=== PATIENT | male | born 1945 | race Caucasian/White ===

== ENCOUNTER 2020-01-15 11:50 | Observation (INO) ==
[2020-01-15] MEDS ORDERED: PEPCID 20 MG IV PREMIX* 20 MG/50 ML BAG IV SCH (13:51)
[2020-01-15 14:21] LABS: BASOPHILS # (AUTO) 0.1 X10^3/uL (0.0-0.1); BASOPHILS % (AUTO) 1.1 % (0.2-1.0); EOSINOPHILS # (AUTO) 0.3 x10^3/uL (0.0-0.2); EOSINOPHILS % (AUTO) 5.4 % (0.9-2.9); HEMATOCRIT 42.9 % (42.0-54.0); HEMOGLOBIN 14.8 g/dL (13.5-18.0); LYMPHOCYTES # (AUTO) 1.5 X10^3/uL (1.3-2.9); LYMPHOCYTES % (AUTO) 29.7 % (21.0-51.0); MEAN CORPUSCULAR HEMOGLOBIN 30.5 pg (27.0-34.0); MEAN CORPUSCULAR HGB CONC 34.4 g/dL (33.0-35.0); MEAN CORPUSCULAR VOLUME 88.5 fL (80.0-100.0); MEAN PLATELET VOLUME 8.7 fL (7.4-11.0); MONOCYTES # (AUTO) 0.4 x10^3/uL (0.3-0.8); MONOCYTES % (AUTO) 7.6 % (0.0-13.0); NEUTROPHILS # (AUTO) 2.9 x10^3/uL (2.2-4.8); NEUTROPHILS % (AUTO) 56.2 % (42.0-75.0); PLATELET COUNT 193 X10^3/uL (150.0-450.0); RED BLOOD COUNT 4.84 X10^6/uL (4.7-6.0); RED CELL DISTRIBUTION WIDTH 13.6 % (11.6-16.5); WHITE BLOOD COUNT 5.2 X10^3/uL (3.6-10.0)
[2020-01-15 14:28] LABS: BILIRUBIN,URINE NEGATIVE (NEGATIVE); BLOOD/HEMOGLOBIN,URINE NEGATIVE (NEGATIVE); GLUCOSE, URINE NEGATIVE (NEGATIVE); KETONES,URINE NEGATIVE (NEGATIVE); LEUKOCYTE ESTERASE ,URINE 2+ (NEGATIVE); NITRITES,URINE NEGATIVE (NEGATIVE); PROTEIN,URINE NEGATIVE (NEGATIVE); UROBILINOGEN,URINE NORMAL (NORMAL)
[2020-01-15 14:30] LABS: APPEARANCE,URINE CLEAR (CLEAR); COLOR,URINE YELLOW (YELLOW)
[2020-01-15 14:33] LABS: ALANINE AMINOTRANSFERASE 34 Units/L (12-78); ALKALINE PHOSPHATASE 51 Units/L (46-116); ASPARTATE AMINO TRANSFERASE 26 Units/L (15-37); BLOOD UREA NITROGEN 24 mg/dL (7-18); CARBON DIOXIDE 31.6 mmol/L (21-32); CHLORIDE 100 mmol/L (98-107); CREATININE 1.35 mg/dL (0.70-1.30); SODIUM 136 mmol/L (136-145); TOTAL PROTEIN 7.2 g/dL (6.4-8.2); eGFR NON BLACK RACES 55 (>60)
[2020-01-15] MEDS ORDERED: NS 250 ML IV 250 ML IV ONE (14:37)
[2020-01-15 14:39] LABS: BACTERIA,URINE TRACE /HPF (NEGATIVE); RBC,URINE NONE SEEN /HPF (0-3); SQUAMOUS EPITHELIAL CELL,UR RARE /HPF (NEGATIVE)
[2020-01-15] MEDS ORDERED: ZOFRAN INJ 4 MG VIAL IVP PRN (14:41)
[2020-01-15 14:48] VITALS: BMI 28.1
[2020-01-15] MEDS: PROTONIX INJ 40 MG VIAL IVP SCH ×2 (14:50→21:35)
[2020-01-15] MEDS: DEMEROL INJ IVP PRN ×2 (14:58→19:44)
--- NOTE | 2020-01-15 17:31 | DR.CONSULT ---
Consult - Consultation for Day of: Date: 01/15/20 - Chief Complaint Chief Complaint: Patient referred for GI Bleed. Patient with complaints of occasional dysphagia, dyspepsia and vomiting. - History of Present Illness History of Present Illness: Patient is a 74 yo male who was referred for GI Bleed. Patient with complaints of occasional dysphagia, dyspepsia and vomiting x 3 episodes yesterday which was black with some red blood as well. Patient denies nausea, abdominal pain, constipation, diarrhea, melena and hematochezia. Patient thinks he had an EGD several years ago. Last colon was [address] Sen showing x4 polyps, diverticulosis and thickening of the colon which was sent for pathology, patient has not follow up for pathology results yet. He takes protonix at home for GERD. Hgb 14.8, Hct 42.9, Plt 193, BUN 24, Creatinine 1.35 - Past Medical History Past Medical History: Hypertension, Sleep Apnea Additional Medical History: chronic back pain - Past Surgical History Additional Surgical History: history of back surgery, ablation to back and epidural - Social History Does patient currently use any type of tobacco product: No Have you used tobacco products in the last 12 months: No Type of Tobacco Use: None Does any household member use tobacco: No Alcohol Use: None Drug Use: None - Medications Home Medications: No Known Drug Allergies Allergy (Verified 01/15/20 16:19) CONTINUE taking the following medications albuterol sulfate [ProAir RespiClick] 2 inh INHALATION Q6H PRN 01/15/20 [History] aspirin [Aspir-81] 81 mg PO DAILY 01/15/20 [History] escitalopram oxalate [Lexapro] 10 mg PO DAILY 01/15/20 [History] fenofibrate [Fenoglide] 4 mg PO DAILY 01/15/20 [History] iron 65 mg PO DAILY 01/15/20 [History] lisinopril [Zestril] 40 mg PO DAILY 01/15/20 [History] oxybutynin chloride 5 mg PO BID 01/15/20 [History] pantoprazole [Protonix] 40 mg PO DAILY 01/15/20 [History] - Review of Systems Gastrointestinal: No Symptoms Reported, See HPI, Vomiting, Diarrhea, Other (dyspepsia, hematemesis). denies: Nausea, Abdominal Pain, Constipation, Melena, Hematochezia - Physical Exam Vital Signs: Temperature 98.4 F Pulse Rate [Left Brachial] 53 Respiratory Rate 20 Blood Pressure [Left Arm] 132/63 O2 Sat by Pulse Oximetry 97 Oriented: Normal Eyes: Normal Ear: Normal Nose: Normal Throat: Normal Respiratory: Clear Throughout Cardiovascular: Normal Auscultation: Bowel Sounds: Normal Palpation: Normal, Other (no distention). negative: Spleen Enlarged, Liver Enlarged, Mass Pulsatile Tenderness: Normal (no tenderness) Skin: Normal Musculoskeletal: Normal Psychiatric: Normal Mood Description: Calm Affect: Normal Speech Pattern: Clear, Appropriate - Plan Plan: Assessment. 1. Hematemesis, GI Bleed. Plan. 1. Protonix IV, Monitor Hg b, Transfuse as needed, EGD in am, Hemoccult. Plan reviewed with Dr. Rand - Allergies Allergies/Adverse Reactions: Allergies Allergy/AdvReac Type Severity Reaction Status Date / Time No Known Drug Allergies Allergy Verified 01/15/20 16:19
[2020-01-15] MEDS ORDERED: PROVENTIL NEB TX 0.083% 2.5MG/ 3ML NEB PRN (17:59)
[2020-01-16 05:36] LABS: BASOPHILS # (AUTO) 0.1 X10^3/uL (0.0-0.1); BASOPHILS % (AUTO) 1.4 % (0.2-1.0); EOSINOPHILS # (AUTO) 0.3 x10^3/uL (0.0-0.2); EOSINOPHILS % (AUTO) 7.5 % (0.9-2.9); HEMATOCRIT 41.7 % (42.0-54.0); HEMOGLOBIN 14.2 g/dL (13.5-18.0); LYMPHOCYTES # (AUTO) 1.4 X10^3/uL (1.3-2.9); LYMPHOCYTES % (AUTO) 31.8 % (21.0-51.0); MEAN CORPUSCULAR HEMOGLOBIN 30.7 pg (27.0-34.0); MEAN CORPUSCULAR HGB CONC 34.1 g/dL (33.0-35.0); MEAN CORPUSCULAR VOLUME 90.1 fL (80.0-100.0); MEAN PLATELET VOLUME 9.7 fL (7.4-11.0); MONOCYTES # (AUTO) 0.3 x10^3/uL (0.3-0.8); MONOCYTES % (AUTO) 7.2 % (0.0-13.0); NEUTROPHILS # (AUTO) 2.2 x10^3/uL (2.2-4.8); NEUTROPHILS % (AUTO) 52.1 % (42.0-75.0); PLATELET COUNT 164 X10^3/uL (150.0-450.0); RED BLOOD COUNT 4.63 X10^6/uL (4.7-6.0); RED CELL DISTRIBUTION WIDTH 13.6 % (11.6-16.5); WHITE BLOOD COUNT 4.2 X10^3/uL (3.6-10.0)
[2020-01-16 05:46] LABS: ALANINE AMINOTRANSFERASE 28 Units/L (12-78); ALBUMIN 3.4 g/dL (3.4-5.0); ALKALINE PHOSPHATASE 44 Units/L (46-116); ASPARTATE AMINO TRANSFERASE 22 Units/L (15-37); BLOOD UREA NITROGEN 17 mg/dL (7-18); CALCIUM 8.5 mg/dL (8.5-10.1); CHLORIDE 103 mmol/L (98-107); CREATININE 1.25 mg/dL (0.70-1.30); SODIUM 138 mmol/L (136-145); TOTAL PROTEIN 6.3 g/dL (6.4-8.2); eGFR NON BLACK RACES 60 (>60)
[2020-01-16] MEDS: DEMEROL INJ IVP PRN ×3 (06:10→22:21)
[2020-01-16] MEDS ORDERED: PEPCID 20 MG IV PREMIX* 20 MG/50 ML BAG IV SCH (09:00)
[2020-01-16] MEDS ORDERED: FENOFIBRATE PO SCH (10:30)
[2020-01-16] MEDS ORDERED: D5 LR 1000 ML 1,000 ML IV ONE (12:40)
[2020-01-16] MEDS ORDERED: DIPRIVAN VIAL 20 ML ONE (13:28)
[2020-01-16] MEDS ORDERED: LEXAPRO ONE (14:43)
[2020-01-16] MEDS: PROTONIX INJ 40 MG VIAL IVP SCH ×2 (14:46→20:54)
[2020-01-16] MEDS: LEXAPRO PO SCH (14:46)
[2020-01-16] MEDS: ZESTRIL TAB 40 MG PO SCH (14:46)
[2020-01-16] MEDS: TRICOR TAB 48 MG PO SCH (17:25)
[2020-01-16] MEDS: DITROPAN TAB 5 MG PO SCH ×2 (17:25→20:54)
--- NOTE | 2020-01-16 22:08 | DR.UPDATE ---
H&P Update History and Physical Update: History and Physical reviewed and patient examined. Changes noted: Yes with the following: IS A 74 YEAR OLD PATIENT OF OURS WHO PRESENTED TO THE HOSPITAL A DIRECT ADMISSION DUE TO AN ACUTE GI BLEED. HE REPORTED COUGHING UP DARK RED BLOOD X 1 DAY. HE REPORTS FIVE EPISODES OF VOMITING PRIOR TO ADMISSION. HE ALSO REPORTS DARK, TARRY STOOLS AND ABDOMINAL PAIN. PAIN IS RATED 5/10 AND IS DESCRIBED CRAMPING AND INTERMITTENT. HE IS CURRENTLY ON AN IRON SUPPLEMENT AND ASPIRIN. HE ALSO ADMITS TO USE OF NSAIDS DUE TO CHRONIC BACK PAIN. ON ARRIVAL TO THE ER, VITALS WERE 98.4-53-20-97%-132/63. LABS WERE OBTAINED. ABNORMAL LAB VALUES INCLUDE THE FOLLOWING: BUN 24, CREATININE 1.35. STOOL IS POSITIVE FOR OCCULT BLOOD. WE STARTED PATIENT ON PROTONIX 40MG IV BID, ZOFRAN 4MG IV Q4H PRN, DEMEROL 25MG IV Q4H PRN, AND HOME MEDICATIONS WERE RESUMED. WE WILL OBTAIN AN ABDOMEN/PELVIS CT WITH CONTRAST AND CONSULT WITH GASTROENTEROLOGY. OTHERWISE, WE PLAN TO FOLLOW UP WITH AM LABS AND CONTINUE TO MONITOR. Prescription drug monitoring program results: PDMP was not reviewed H&P Reviewed: Yes Patient was examined?: Yes
[2020-01-17] MEDS: DEMEROL INJ IVP PRN ×2 (04:09→08:12)
[2020-01-17 06:29] LABS: BASOPHILS # (AUTO) 0.1 X10^3/uL (0.0-0.1); BASOPHILS % (AUTO) 1.1 % (0.2-1.0); EOSINOPHILS # (AUTO) 0.3 x10^3/uL (0.0-0.2); EOSINOPHILS % (AUTO) 5.7 % (0.9-2.9); HEMATOCRIT 42.6 % (42.0-54.0); HEMOGLOBIN 14.5 g/dL (13.5-18.0); LYMPHOCYTES # (AUTO) 1.3 X10^3/uL (1.3-2.9); LYMPHOCYTES % (AUTO) 26.4 % (21.0-51.0); MEAN CORPUSCULAR HEMOGLOBIN 30.2 pg (27.0-34.0); MEAN CORPUSCULAR HGB CONC 33.9 g/dL (33.0-35.0); MEAN CORPUSCULAR VOLUME 88.9 fL (80.0-100.0); MEAN PLATELET VOLUME 9.1 fL (7.4-11.0); MONOCYTES # (AUTO) 0.4 x10^3/uL (0.3-0.8); MONOCYTES % (AUTO) 7.3 % (0.0-13.0); NEUTROPHILS # (AUTO) 2.9 x10^3/uL (2.2-4.8); NEUTROPHILS % (AUTO) 59.5 % (42.0-75.0); PLATELET COUNT 162 X10^3/uL (150.0-450.0); RED CELL DISTRIBUTION WIDTH 13.4 % (11.6-16.5)
[2020-01-17 06:44] LABS: ALANINE AMINOTRANSFERASE 27 Units/L (12-78); ALBUMIN 3.5 g/dL (3.4-5.0); ALKALINE PHOSPHATASE 47 Units/L (46-116); ASPARTATE AMINO TRANSFERASE 24 Units/L (15-37); BLOOD UREA NITROGEN 16 mg/dL (7-18); CALCIUM 8.6 mg/dL (8.5-10.1); CARBON DIOXIDE 28.2 mmol/L (21-32); CHLORIDE 102 mmol/L (98-107); CREATININE 1.25 mg/dL (0.70-1.30); SODIUM 137 mmol/L (136-145); TOTAL PROTEIN 6.5 g/dL (6.4-8.2); eGFR NON BLACK RACES 60 (>60)
[2020-01-17] MEDS ORDERED: LEXAPRO ONE (08:32)
[2020-01-17] MEDS: ZESTRIL TAB 40 MG PO SCH (09:14)
[2020-01-17] MEDS: LEXAPRO PO SCH (09:14)
[2020-01-17] MEDS: TRICOR TAB 48 MG PO SCH (09:14)
[2020-01-17] MEDS: PROTONIX INJ 40 MG VIAL IVP SCH (09:15)
--- NOTE | 2020-01-17 09:16 | CT ---
HISTORYGI BLEEDSTUDYCT abdomen/pelvis with contrastCOMPARISONNoneTECHNIQUEMultiple axial images of the abdomen and pelvis were obtained from the lung bases to the pubic symphysis after the administration of IV contrast. Coronal sagittal reformats obtained. Dose reduction techniques including Automated Exposure Control (AEC) and adjustment of mA and kV were utilized.FINDINGSLung bases: Ectatic ascending aorta, measures 4.6 cm in diameter. Heart size is within normal limits. No pericardial effusion. Bibasilar dependent atelectasis. Linear atelectasis/scarring at the bilateral lung bases.Liver: Subcentimeter left hepatic lobe low-density lesion, too small to be characterized.Biliary: The gallbladder is present. No biliary dilatation.Spleen: UnremarkablePancreas: UnremarkableAdrenals: Unremarkable.Kidneys: Multiple bilateral renal cortical scarring. Subcentimeter low-density lesions of the bilateral kidneys are too small to be characterized. Nonspecific mild perinephric stranding. No hydronephrosis.Bladder: Decompressed with nonspecific wall thickening.Reproductive: Prostate is mildly enlarged with a 9 mm low-density focusColon: Descending and sigmoid colonic diverticula without CT evidence of acute diverticulitis. The appendix is normal.Stomach and small bowel: Small hiatal hernia. Stomach is mildly distended. No focal small bowel dilatation, wall thickening or perienteric stranding.Vasculature and lymph nodes: The abdominal aorta is of normal caliber. Mild atherosclerotic calcification. No lymphadenopathy by CT size criteria.Other: No extraluminal air. No free fluid.Abdominal wall: Small fat containing bilateral inguinal hernias.Bones: Diffuse osteopenia. Status post L4-5 posterior and interbody fusion. Disc height loss and vacuum disc phenomena L3-4 and L5-S1. Wedge compression deformity at T12 with approximately 50 percent vertebral body height loss anteriorly. There is associated mild 2-3 millimeter retropulsion.IMPRESSIONNonspecific bladder wall thickening may be correlated clinically with urinalysis to exclude infection.Ectatic ascending aorta, measures 4.6 cm in diameter.9 mm low-density focus of the prostate, could represent a nodule or dilated prostatic urethra.Osteopenia with wedge compression deformity of T12, chronicity indeterminate. Associated minimal 2-3 mm retropulsion noted.Colonic diverticula without CT evidence of acute diverticulitis.Ancillary findings as detailed.Electronically signed by: Jeanie Garcia (Jan 15, 2020 17:39:35)
--- NOTE | 2020-01-17 09:16 | RAD ---
HISTORYGI BLEEDSTUDYCHEST, 1 VIEWCOMPARISONNoneFINDINGSThe trachea is midline. The cardiac silhouette is borderline prominent. Elevation of the left hemidiaphragm with left basilar atelectasis versus infiltrates. The right lung is clear. No pleural effusion or pneumothorax. Multilevel spondylosis..IMPRESSIONElevated left hemidiaphragm with mild left basilar atelectasis versus infiltrates.Borderline cardiomegaly.Electronically signed by: Jeanie Garcia (Jan 15, 2020 17:31:22)
[2020-01-17] MEDS: DITROPAN TAB 5 MG PO SCH (10:14)
[2020-01-17 10:44] VITALS: BP 147/66
== END 2020-01-17 13:15 | disposition home or self-care (01) ==
LOC: MED/SURG
PROVIDERS: ADMIT Internal Medicine; ATTEND Internal Medicine
DX: R13.11 Dysphagia, oral phase; K92.2 Gastrointestinal hemorrhage, unspecified; K29.80 Duodenitis without bleeding; M85.88 Other specified disorders of bone density and structure, other site; K20.8 Other esophagitis; K22.2 Esophageal obstruction; R11.2 Nausea with vomiting, unspecified; K29.00 Acute gastritis without bleeding
CPT/HCPCS: 36415; 71010; 71045; 74177; 80053; 81001; 82270; 85025; 87635; 88305; 88342; 94760; 96374; 99100; A4216; A4222; C9113; G0378; J2175; J2704; J7050; S0028